=== PATIENT | female | born 1995 | race Caucasian/White ===

== ENCOUNTER 2018-05-29 11:04 | Emergency (ER) | payer OTHER ==
--- NOTE | 2018-05-29 13:30 | ED Physician Documentation ---
PD HPI UPPER EXT INJURY - Stated complaint Stated Complaint: RIGHT INDEX FINGER CUT - Chief complaint Chief Complaint: Ext Problem - History obtained from History obtained from: Patient - History of Present Illness Location: Right, Finger Type of injury: Laceration (finger tip caught in wire cutting machine, with lac at nail/nailbed.) Where injury occurred: Work Timing - onset: How many hours ago (1), Today Timing - details: Abrupt onset Worsened by: Palpating Associated symptoms: No: Weakness, Numbness (1) Similar symptoms before: Has not had sx before Review of Systems Skin: reports: Laceration (s) Neurologic: denies: Focal weakness, Numbness, Near syncope PD PAST MEDICAL HISTORY - Past Medical History Cardiovascular: None Respiratory: None Endocrine/Autoimmune: None - Allergies Allergies/Adverse Reactions: Allergies Allergy/AdvReac Type Severity Reaction Status Date / Time No Known Drug Allergies Allergy Verified 05/29/18 11:35 PD ED PE NORMAL - Vitals Vital signs reviewed: Yes - General General: Alert and oriented X 3, No acute distress, Well developed/nourished - Derm Derm: Normal color, Warm and dry - Extremities Extremities: Other (right index finger tip with laceration and tear of the end of the nail with some blood around the site and from under the small piece of loose nail. No disruption of the nychial fold, and the lac does not cross out of the bed area.) - Neuro Neuro: No motor deficit, No sensory deficit Results - Vitals Vitals: Oxygen O2 Source Room air PD MEDICAL DECISION MAKING - ED course Complexity details: considered differential, d/w patient Departure - Departure Disposition: 01 Home, Self Care Clinical Impression: Nailbed laceration, finger Qualifiers: Encounter type: initial encounter Qualified Code(s): S61.319A - Laceration without foreign body of unspecified finger with damage to nail, initial encounter Condition: Stable Record reviewed to determine appropriate education?: Yes Instructions: ED Laceration All Comments: This should develop okay without specific treatment. Clean with soap and water and apply some ointment to the area couple times a day. Watch for signs of infection. You can trim back the nail so it is not as loose. That small corner of the nail will eventually loosen up and you can just trim it back. Tylenol or ibuprofen if needed for pains. We did update your tetanus today. Discharge Date/Time: 05/29/18 13:57
[2018-05-29 13:35] VITALS: BP 108/78
[2018-05-29] MEDS ORDERED: IBUPROFEN 600 MG TABLET PO STA (13:42)
[2018-05-29] MEDS ORDERED: TETANUS/DIPHTHERIA/PERTUSSIS 0.5 ML SYRINGE IM ONE (13:42)
== END 2018-05-29 13:57 | disposition home or self-care (01) ==
LOC: ED 11:04
DX: S61.310A Laceration without foreign body of right index finger with damage to nail, initial encounter (principal); W31.89XA Contact with other specified machinery, initial encounter; Y93.89 Activity, other specified; Y92.89 Other specified places as the place of occurrence of the external cause; Y99.0 Civilian activity done for income or pay; Z23 Encounter for immunization
CPT/HCPCS: 1040M; 90471; 90715; 99282; 99283; A9270